=== PATIENT | female | born 1965 | race Caucasian/White ===

== ENCOUNTER 2021-05-21 06:16 | Inpatient (IN) | payer SELFPAY ==
[~2021-05-21] VITALS: Ht 160 cm; Wt 113.6 kg
[~2021-05-21 06:16] MED LIST: NOCURR
[2021-05-21] MEDS ORDERED: KETOROLAC TROMETHAMINE 30 MG/ML VIAL IVP ONE (06:45)
[2021-05-21] MEDS ORDERED: ONDANSETRON HCL 4 MG/2 ML VIAL IVP ONE ×2 (06:45→12:00)
[2021-05-21] MEDS ORDERED: SODIUM CHLORIDE 0.9% 1,000 ML IV ONE ×2 (06:45→09:15)
[2021-05-21] MEDS ORDERED: BISMUTH SUBSALICYLATE 525 MG/30 ML SUSPENSION UDCUP PO ONE (06:45)
[2021-05-21 06:53] LABS: EOSINOPHILS % (AUTO) 2.1 % (1.0-6.0); HEMOGLOBIN 14.6 g/dL (12.0-16.0); LYMPHOCYTES # (AUTO) 2.1 K/uL (1.0-4.8); LYMPHOCYTES % (AUTO) 11.9 % (22.0-44.0); MEAN CORPUSCULAR VOLUME 91 fL (80-100); MONOCYTES # (AUTO) 1.8 K/uL (0.1-1.0); MONOCYTES % (AUTO) 10.2 % (2.0-9.0); NEUTROPHILS % (AUTO) 74.8 % (40.0-70.0); PLATELET COUNT (AUTO) 291 K/uL (150-450); RED BLOOD CELL COUNT(AUTO) 4.72 MIL/uL (4.00-5.20); RED CELL DISTRIBUTION WIDTH 14.8 % (11.5-14.5)
[2021-05-21 07:06] LABS: ANION GAP 7 mmol/L (8-16); CALCIUM, TOTAL 8.5 mg/dL (8.8-10.5); CARBON DIOXIDE 27 mmol/L (22-29); CHLORIDE 104 mmol/L (98-107); CREATININE 0.72 mg/dL (0.60-1.30); GLOMERULAR FILTR. RATE CALC > 60 mL/min (>60); GLUCOSE,RANDOM 102 mg/dL (70-110); POTASSIUM 3.1 mmol/L (3.5-5.1); SODIUM SERUM 138 mmol/L (136-145); UREA NITROGEN, BLOOD 7 mg/dL (7-18)
[2021-05-21 07:13] LABS: ALANINE AMINOTRANSFERASE 26 U/L (12-78); ALBUMIN 3.4 g/dL (3.4-5.0); ALKALINE PHOSPHATASE 72 U/L (46-116); ASPARTATE AMINOTRANSFERASE 14 U/L (15-37); BILIRUBIN,TOTAL 0.6 mg/dL (0.1-1.0); LIPASE 312 U/L (73-393); TOTAL PROTEIN, SERUM 6.8 g/dL (6.4-8.2)
[2021-05-21] MEDS ORDERED: POTASSIUM CHLORIDE 20 MEQ ER TABLET PO ONE (07:30)
[2021-05-21 08:02] LABS: APPEARANCE,URINE HAZY (CLEAR); BILIRUBIN,URINE NEGATIVE (NEGATIVE); GLUCOSE, URINE (UA) NEGATIVE (NEGATIVE); LEUKOCYTE ESTERASE ,URINE TRACE (NEGATIVE); NITRATE,URINE NEGATIVE (NEGATIVE); OCCULT BLOOD,URINE TRACE (NEGATIVE); PROTEIN,URINE 30-70 mg/dL (NEGATIVE); SPECIFIC GRAVITIY, URINE 1.023 (1.003-1.030); UROBILINOGEN,URINE <=1.0 mg/dL (<=1.0)
[2021-05-21 08:24] LABS: BACTERIA,URINE None Seen /HPF (None Seen); RBC,URINE 0-2 /HPF (0-2); SQUAMOUS EPITHELIAL CELL,UR Few /LPF (None Seen); WBC,URINE 0-2 /HPF (0-5)
[2021-05-21] MEDS ORDERED: PIPERACILLIN/TAZO 3.375 GM/D5W 50 ML IV ONE (08:45)
[2021-05-21] MEDS ORDERED: MORPHINE SULFATE 4 MG/ML SYRINGE IVP ONE (08:45)
[2021-05-21] MEDS ORDERED: DiphenhydrAMINE HCL 50 MG/ML VIAL IVP ONE (08:45)
[2021-05-21 08:59] LABS: COVID AG,FIA SOURCE NASAL SWAB
[2021-05-21] MEDS ORDERED: 0.9% SODIUM CHLORIDE 10 ML SYRINGE IVP PRN (09:15)
[2021-05-21] MEDS ORDERED: ONDANSETRON HCL 4 MG/2 ML VIAL IVP PRN (09:15)
[2021-05-21 10:37] VITALS: BP 131/77
[2021-05-21] MEDS ORDERED: SUCCINYLCHOLINE CHLORIDE 20 MG/ML 10 ML VIAL IVP ONE (12:00)
[2021-05-21] MEDS ORDERED: MIDAZOLAM HCL 2 MG/2 ML VIAL IVP ONE (12:00)
[2021-05-21] MEDS ORDERED: LIDOCAINE/PF 2% 5 ML VIAL IM ONE (12:00)
[2021-05-21] MEDS ORDERED: PROPOFOL 1% 20 ML VIAL IVP ONE (12:00)
[2021-05-21] MEDS ORDERED: ROCURONIUM BROMIDE 10 MG/ML 5 ML VIAL IVP ONE (12:00)
[2021-05-21] MEDS ORDERED: DEXAMETHASONE SOD PHOS 4 MG/ML VIAL IVP ONE (12:00)
[2021-05-21] MEDS ORDERED: FentaNYL CITRATE PF 100 MCG/2 ML VIAL IVP ONE (12:00)
[2021-05-21] MEDS ORDERED: RINGERS SOLUTION,LACTATED 1,000 ML IV ONE ×2 (12:02→13:00)
[2021-05-21] MEDS ORDERED: BUPIVACAINE 0.25%/EPI 1:200,000/PF 10 ML VIAL ONE (14:51)
[2021-05-21] MEDS ORDERED: SODIUM CHLORIDE 0.9% 1,000 ML ONE (14:52)
[2021-05-21] MEDS ORDERED: MetroNIDAZOLE 500 MG/NACL 100 ML IV ONE (16:13)
[2021-05-21] MEDS ORDERED: SUGAMMADEX SODIUM 200 MG/2 ML VIAL IVP ONE ×2 (16:21→16:22)
[2021-05-21] MEDS ORDERED: FentaNYL CITRATE PF 100 MCG/2 ML VIAL IVP PRN (17:15)
[2021-05-21] MEDS ORDERED: HYDROmorphone 2 MG/ML VIAL ONE (17:29)
[2021-05-21] MEDS: HYDROmorphone 2 MG/ML VIAL IVP PRN ×4 (17:32→20:05)
[2021-05-21] MEDS ORDERED: ACETAMINOPHEN 1000 MG/ISO-OSM 100 ML IV ONE ×2 (17:35→17:45)
[2021-05-21] MEDS ORDERED: FentaNYL CITRATE PF 100 MCG/2 ML VIAL ONE ×2 (17:53→18:25)
[2021-05-21 18:27] VITALS: BP 163/89
[2021-05-21] MEDS: CefTRIAXone SODIUM 2 GM in DEXTROSE 5%-WATER 50 ML IV SCH (19:20)
[2021-05-21 19:38] VITALS: BP 156/86
[2021-05-21] MEDS: MetroNIDAZOLE 500 MG TABLET PO SCH (20:03)
[2021-05-21] MEDS: ACETAMINOPHEN 500 MG TABLET PO SCH (20:04)
[2021-05-21] MEDS: RINGERS SOLUTION,LACTATED 1,000 ML IV SCH (20:04)
[2021-05-21] MEDS: IBUPROFEN 600 MG TABLET PO SCH ×2 (20:04→23:38)
[2021-05-21] MEDS: OXYGEN THERAPY IH SCH (20:04)
[2021-05-21] MEDS: OxyCODONE HCL 5 MG IR TABLET PO PRN (23:39)
[2021-05-21] MEDS ORDERED: IPRATROPIUM BROMIDE 0.5 MG/2.5 ML NEB SOLUTION NEB PRN (23:45)
[2021-05-21] MEDS ORDERED: ALBUTEROL SULFATE 2.5 MG/0.5 ML NEB SOLUTION NEB PRN (23:45)
[2021-05-21] MEDS ORDERED: BISACODYL 10 MG RECTAL RECTAL SUPPOSITORY PR PRN (23:45)
[2021-05-21] MEDS ORDERED: MAGNESIUM HYDROXIDE SUSPENSION 30 ML UDCUP PO PRN (23:45)
[2021-05-22] MEDS: HEPARIN SODIUM,PORCINE 5,000 UNITS/ML VIAL SQ SCH ×4 (00:18→23:28)
[2021-05-22] MEDS: MORPHINE SULFATE 2 MG/ML SYRINGE IVP PRN ×6 (02:33→23:28)
[2021-05-22 04:58] VITALS: BP 134/75
[2021-05-22] MEDS: IBUPROFEN 600 MG TABLET PO SCH ×4 (06:04→23:28)
[2021-05-22] MEDS: POTASSIUM CHLORIDE 20 MEQ ER TABLET PO PRN (06:05)
[2021-05-22] MEDS: RINGERS SOLUTION,LACTATED 1,000 ML IV SCH ×2 (06:11→09:10)
[2021-05-22 07:34] LABS: BASOPHILS % (AUTO) 0.2 % (0.0-2.0); EOSINOPHILS % (AUTO) 0 % (1.0-6.0); HEMATOCRIT 41.5 % (36-46); HEMOGLOBIN 13.7 g/dL (12.0-16.0); LYMPHOCYTES # (AUTO) 1.2 K/uL (1.0-4.8); LYMPHOCYTES % (AUTO) 5.9 % (22.0-44.0); MEAN CORPUSCULAR HEMOGLOBIN 30.5 pg (26.0-34.0); MEAN CORPUSCULAR VOLUME 93 fL (80-100); MONOCYTES # (AUTO) 1.6 K/uL (0.1-1.0); MONOCYTES % (AUTO) 7.9 % (2.0-9.0); NEUTROPHILS # (AUTO) 17.8 K/uL (1.8-7.7); PLATELET COUNT (AUTO) 288 K/uL (150-450); RED BLOOD CELL COUNT(AUTO) 4.49 MIL/uL (4.00-5.20); RED CELL DISTRIBUTION WIDTH 14.9 % (11.5-14.5)
[2021-05-22] MEDS: DOCUSATE SODIUM 100 MG CAPSULE PO SCH ×2 (07:56→20:44)
[2021-05-22] MEDS: ACETAMINOPHEN 500 MG TABLET PO SCH ×3 (07:57→20:44)
[2021-05-22] MEDS: PANTOPRAZOLE SODIUM 40 MG/VIAL IVP SCH (07:57)
[2021-05-22] MEDS: OXYGEN THERAPY IH SCH ×2 (08:00→20:00)
[2021-05-22] MEDS: MetroNIDAZOLE 500 MG TABLET PO SCH ×2 (08:20→20:44)
[2021-05-22] MEDS: ONDANSETRON HCL 4 MG/2 ML VIAL IVP PRN ×3 (08:20→23:40)
[2021-05-22] MEDS ORDERED: ALBU8HFA IH (10:39)
[2021-05-22] MEDS: ALBUTEROL SULFATE HFA 90 MCG/PUFF 8 GM INHALER IH PRN (15:27)
[2021-05-22] MEDS: CefTRIAXone SODIUM 2 GM in DEXTROSE 5%-WATER 50 ML IV SCH (16:09)
[2021-05-22 16:28] VITALS: BP 140/81
[2021-05-22 19:51] VITALS: BP 135/86
[2021-05-23] MEDS: OxyCODONE HCL 5 MG IR TABLET PO PRN ×2 (02:38→08:48)
[2021-05-23] MEDS: RINGERS SOLUTION,LACTATED 1,000 ML IV SCH ×2 (05:08→20:17)
[2021-05-23] MEDS: MORPHINE SULFATE 2 MG/ML SYRINGE IVP PRN ×3 (05:08→13:57)
[2021-05-23] MEDS: ALBUTEROL SULFATE HFA 90 MCG/PUFF 8 GM INHALER IH PRN (05:28)
[2021-05-23 05:55] VITALS: BP 135/74
[2021-05-23] MEDS: IBUPROFEN 600 MG TABLET PO SCH ×3 (06:00→18:12)
[2021-05-23 07:38] VITALS: BP 132/85
[2021-05-23] MEDS: OXYGEN THERAPY IH SCH ×2 (08:00→20:00)
[2021-05-23] MEDS: DOCUSATE SODIUM 100 MG CAPSULE PO SCH ×2 (08:49→20:16)
[2021-05-23] MEDS: HEPARIN SODIUM,PORCINE 5,000 UNITS/ML VIAL SQ SCH ×2 (08:50→17:03)
[2021-05-23] MEDS: PANTOPRAZOLE SODIUM 40 MG/VIAL IVP SCH (08:50)
[2021-05-23] MEDS: ACETAMINOPHEN 500 MG TABLET PO SCH ×3 (08:50→20:17)
[2021-05-23 09:19] LABS: BASOPHILS % (AUTO) 0.5 % (0.0-2.0); EOSINOPHILS % (AUTO) 1.1 % (1.0-6.0); HEMATOCRIT 40.5 % (36-46); HEMOGLOBIN 13.4 g/dL (12.0-16.0); LYMPHOCYTES # (AUTO) 1.3 K/uL (1.0-4.8); LYMPHOCYTES % (AUTO) 6.9 % (22.0-44.0); MEAN CORPUSCULAR HEMOGLOBIN 30.7 pg (26.0-34.0); MEAN CORPUSCULAR HGB CONC 33.1 G/dL (31.0-37.0); MEAN CORPUSCULAR VOLUME 93 fL (80-100); MONOCYTES # (AUTO) 1.8 K/uL (0.1-1.0); MONOCYTES % (AUTO) 9.4 % (2.0-9.0); NEUTROPHILS # (AUTO) 15.7 K/uL (1.8-7.7); NEUTROPHILS % (AUTO) 82.1 % (40.0-70.0); PLATELET COUNT (AUTO) 275 K/uL (150-450); RED BLOOD CELL COUNT(AUTO) 4.36 MIL/uL (4.00-5.20); RED CELL DISTRIBUTION WIDTH 14.9 % (11.5-14.5)
[2021-05-23 09:27] LABS: ANION GAP 12 mmol/L (8-16); CALCIUM, TOTAL 8.5 mg/dL (8.8-10.5); CARBON DIOXIDE 26 mmol/L (22-29); CHLORIDE 105 mmol/L (98-107); CREATININE 0.51 mg/dL (0.60-1.30); GLUCOSE,RANDOM 87 mg/dL (70-110); POTASSIUM 3.5 mmol/L (3.5-5.1); SODIUM SERUM 143 mmol/L (136-145); UREA NITROGEN, BLOOD 7 mg/dL (7-18)
[2021-05-23 09:29] LABS: GLOMERULAR FILTR. RATE CALC > 60 mL/min (>60)
[2021-05-23] MEDS: MetroNIDAZOLE 500 MG TABLET PO SCH ×2 (10:17→20:17)
[2021-05-23] MEDS: ONDANSETRON HCL 4 MG/2 ML VIAL IVP PRN (13:57)
[2021-05-23 15:39] VITALS: BP 137/72
[2021-05-23] MEDS ORDERED: SODIUM CHLORIDE 0.9% 250 ML IV ONE (18:09)
[2021-05-23] MEDS: CefTRIAXone SODIUM 2 GM in DEXTROSE 5%-WATER 50 ML IV SCH (18:11)
[2021-05-23 19:40] VITALS: BP 136/68
[2021-05-23] MEDS: ZOLPIDEM TARTRATE 5 MG TABLET PO PRN (20:17)
[2021-05-24] MEDS: MORPHINE SULFATE 2 MG/ML SYRINGE IVP PRN ×4 (01:27→18:04)
[2021-05-24] MEDS: OxyCODONE HCL 5 MG IR TABLET PO PRN (04:13)
[2021-05-24 04:20] VITALS: BP 121/68
[2021-05-24] MEDS: IBUPROFEN 600 MG TABLET PO SCH ×5 (05:29→23:23)
[2021-05-24 07:38] LABS: EOSINOPHILS % (AUTO) 3.9 % (1.0-6.0); HEMATOCRIT 38.7 % (36-46); HEMOGLOBIN 13.2 g/dL (12.0-16.0); LYMPHOCYTES # (AUTO) 1.5 K/uL (1.0-4.8); LYMPHOCYTES % (AUTO) 9.7 % (22.0-44.0); MEAN CORPUSCULAR HEMOGLOBIN 31.1 pg (26.0-34.0); MEAN CORPUSCULAR HGB CONC 34.1 G/dL (31.0-37.0); MEAN CORPUSCULAR VOLUME 91 fL (80-100); MONOCYTES # (AUTO) 1.7 K/uL (0.1-1.0); MONOCYTES % (AUTO) 10.6 % (2.0-9.0); NEUTROPHILS # (AUTO) 11.8 K/uL (1.8-7.7); NEUTROPHILS % (AUTO) 74.8 % (40.0-70.0); PLATELET COUNT (AUTO) 289 K/uL (150-450); RED BLOOD CELL COUNT(AUTO) 4.24 MIL/uL (4.00-5.20); RED CELL DISTRIBUTION WIDTH 14.6 % (11.5-14.5)
[2021-05-24] MEDS: OXYGEN THERAPY IH SCH ×2 (08:00→20:00)
[2021-05-24 08:07] VITALS: BP 134/64
[2021-05-24] MEDS: PANTOPRAZOLE SODIUM 40 MG/VIAL IVP SCH (08:41)
[2021-05-24] MEDS: HEPARIN SODIUM,PORCINE 5,000 UNITS/ML VIAL SQ SCH ×4 (08:41→23:23)
[2021-05-24] MEDS: DOCUSATE SODIUM 100 MG CAPSULE PO SCH ×2 (08:41→20:48)
[2021-05-24] MEDS: ACETAMINOPHEN 500 MG TABLET PO SCH ×3 (08:44→20:48)
[2021-05-24] MEDS: MetroNIDAZOLE 500 MG TABLET PO SCH ×2 (08:44→20:48)
[2021-05-24] MEDS: RINGERS SOLUTION,LACTATED 1,000 ML IV SCH (10:24)
[2021-05-24 15:58] VITALS: BP 137/78
[2021-05-24] MEDS: CefTRIAXone SODIUM 2 GM in DEXTROSE 5%-WATER 50 ML IV SCH (18:25)
[2021-05-24] MEDS ORDERED: SODIUM CHLORIDE 0.9% 500 ML IV ONE (18:28)
[2021-05-24] MEDS: ALBUTEROL SULFATE HFA 90 MCG/PUFF 8 GM INHALER IH PRN (18:31)
[2021-05-24 19:50] VITALS: BP 121/63
[2021-05-24] MEDS: ZOLPIDEM TARTRATE 5 MG TABLET PO PRN (20:48)
[2021-05-25] MEDS: RINGERS SOLUTION,LACTATED 1,000 ML IV SCH ×2 (02:50→14:41)
[2021-05-25] MEDS: OxyCODONE HCL 5 MG IR TABLET PO PRN (04:36)
[2021-05-25 05:30] VITALS: BP 155/81
[2021-05-25] MEDS: ALBUTEROL SULFATE HFA 90 MCG/PUFF 8 GM INHALER IH PRN (05:46)
[2021-05-25] MEDS: IBUPROFEN 600 MG TABLET PO SCH ×4 (05:47→23:25)
[2021-05-25 06:44] LABS: BASOPHILS % (AUTO) 1.8 % (0.0-2.0); EOSINOPHILS % (AUTO) 5.2 % (1.0-6.0); HEMATOCRIT 37.8 % (36-46); HEMOGLOBIN 12.8 g/dL (12.0-16.0); LYMPHOCYTES # (AUTO) 1.7 K/uL (1.0-4.8); LYMPHOCYTES % (AUTO) 12.7 % (22.0-44.0); MEAN CORPUSCULAR HGB CONC 33.8 G/dL (31.0-37.0); MEAN CORPUSCULAR VOLUME 92 fL (80-100); MONOCYTES # (AUTO) 1.2 K/uL (0.1-1.0); NEUTROPHILS # (AUTO) 9.5 K/uL (1.8-7.7); NEUTROPHILS % (AUTO) 71.3 % (40.0-70.0); PLATELET COUNT (AUTO) 313 K/uL (150-450); RED BLOOD CELL COUNT(AUTO) 4.13 MIL/uL (4.00-5.20); RED CELL DISTRIBUTION WIDTH 14.5 % (11.5-14.5)
[2021-05-25 08:15] VITALS: BP 130/73
[2021-05-25] MEDS: MetroNIDAZOLE 500 MG TABLET PO SCH ×2 (08:59→20:13)
[2021-05-25] MEDS: ACETAMINOPHEN 325 MG TABLET PO PRN (08:59)
[2021-05-25] MEDS: PANTOPRAZOLE SODIUM 40 MG/VIAL IVP SCH (08:59)
[2021-05-25] MEDS: HEPARIN SODIUM,PORCINE 5,000 UNITS/ML VIAL SQ SCH ×3 (08:59→23:25)
[2021-05-25] MEDS: DOCUSATE SODIUM 100 MG CAPSULE PO SCH ×2 (08:59→20:13)
[2021-05-25] MEDS: MORPHINE SULFATE 2 MG/ML SYRINGE IVP PRN ×4 (09:00→20:13)
[2021-05-25] MEDS: ACETAMINOPHEN 500 MG TABLET PO SCH ×3 (09:10→23:21)
[2021-05-25 16:19] VITALS: BP 142/84
[2021-05-25] MEDS: CefTRIAXone SODIUM 2 GM in DEXTROSE 5%-WATER 50 ML IV SCH (18:37)
[2021-05-25 21:07] VITALS: BP 139/81
[2021-05-25] MEDS: ZOLPIDEM TARTRATE 5 MG TABLET PO PRN (23:24)
[2021-05-26] MEDS: RINGERS SOLUTION,LACTATED 1,000 ML IV SCH (04:10)
[2021-05-26 04:41] VITALS: BP 143/90
[2021-05-26] MEDS: IBUPROFEN 600 MG TABLET PO SCH ×4 (05:13→23:05)
[2021-05-26 05:57] LABS: BASOPHILS % (AUTO) 0.7 % (0.0-2.0); EOSINOPHILS % (AUTO) 7.3 % (1.0-6.0); HEMATOCRIT 39.1 % (36-46); HEMOGLOBIN 12.9 g/dL (12.0-16.0); LYMPHOCYTES # (AUTO) 2.2 K/uL (1.0-4.8); LYMPHOCYTES % (AUTO) 18.8 % (22.0-44.0); MEAN CORPUSCULAR HEMOGLOBIN 30.1 pg (26.0-34.0); MEAN CORPUSCULAR VOLUME 91 fL (80-100); MONOCYTES # (AUTO) 1.3 K/uL (0.1-1.0); MONOCYTES % (AUTO) 10.5 % (2.0-9.0); NEUTROPHILS # (AUTO) 7.5 K/uL (1.8-7.7); NEUTROPHILS % (AUTO) 62.7 % (40.0-70.0); PLATELET COUNT (AUTO) 335 K/uL (150-450); RED BLOOD CELL COUNT(AUTO) 4.29 MIL/uL (4.00-5.20); RED CELL DISTRIBUTION WIDTH 14.5 % (11.5-14.5)
[2021-05-26] MEDS: MORPHINE SULFATE 2 MG/ML SYRINGE IVP PRN ×3 (06:01→15:14)
[2021-05-26] MEDS: OxyCODONE HCL 5 MG IR TABLET PO PRN ×2 (07:21→21:18)
[2021-05-26 07:41] VITALS: BP 136/88
[2021-05-26] MEDS: OXYGEN THERAPY IH SCH ×2 (08:00→20:00)
[2021-05-26] MEDS: HEPARIN SODIUM,PORCINE 5,000 UNITS/ML VIAL SQ SCH ×3 (08:00→23:05)
[2021-05-26] MEDS: MetroNIDAZOLE 500 MG TABLET PO SCH (08:30)
[2021-05-26] MEDS: DOCUSATE SODIUM 100 MG CAPSULE PO SCH ×2 (08:44→20:04)
[2021-05-26] MEDS: PANTOPRAZOLE SODIUM 40 MG/VIAL IVP SCH (10:13)
[2021-05-26] MEDS: ACETAMINOPHEN 500 MG TABLET PO SCH ×3 (10:53→20:03)
[2021-05-26 15:41] VITALS: BP 142/76
[2021-05-26 20:00] VITALS: BP 145/77
[2021-05-26] MEDS: AMOX TR/POT CLAV 875 MG/125 MG TABLET PO SCH (20:03)
[2021-05-26] MEDS: ZOLPIDEM TARTRATE 5 MG TABLET PO PRN (21:18)
[2021-05-27 04:44] VITALS: BP 144/83
[2021-05-27] MEDS: IBUPROFEN 600 MG TABLET PO SCH ×4 (05:04→23:18)
[2021-05-27 07:06] LABS: BASOPHILS % (AUTO) 0.9 % (0.0-2.0); EOSINOPHILS % (AUTO) 6.4 % (1.0-6.0); HEMATOCRIT 38.3 % (36-46); HEMOGLOBIN 12.8 g/dL (12.0-16.0); LYMPHOCYTES # (AUTO) 1.8 K/uL (1.0-4.8); LYMPHOCYTES % (AUTO) 16.6 % (22.0-44.0); MEAN CORPUSCULAR HEMOGLOBIN 30.6 pg (26.0-34.0); MEAN CORPUSCULAR HGB CONC 33.4 G/dL (31.0-37.0); MEAN CORPUSCULAR VOLUME 91 fL (80-100); MONOCYTES # (AUTO) 1.1 K/uL (0.1-1.0); MONOCYTES % (AUTO) 10.4 % (2.0-9.0); NEUTROPHILS # (AUTO) 7.3 K/uL (1.8-7.7); NEUTROPHILS % (AUTO) 65.7 % (40.0-70.0); PLATELET COUNT (AUTO) 320 K/uL (150-450); RED BLOOD CELL COUNT(AUTO) 4.19 MIL/uL (4.00-5.20); RED CELL DISTRIBUTION WIDTH 14.5 % (11.5-14.5)
[2021-05-27] MEDS: OXYGEN THERAPY IH SCH ×2 (08:00→20:00)
[2021-05-27] MEDS: HEPARIN SODIUM,PORCINE 5,000 UNITS/ML VIAL SQ SCH ×3 (08:00→23:18)
[2021-05-27] MEDS: ACETAMINOPHEN 500 MG TABLET PO SCH ×3 (08:46→20:06)
[2021-05-27] MEDS: AMOX TR/POT CLAV 875 MG/125 MG TABLET PO SCH ×2 (08:46→20:06)
[2021-05-27] MEDS: DOCUSATE SODIUM 100 MG CAPSULE PO SCH ×2 (08:49→20:07)
[2021-05-27] MEDS: PANTOPRAZOLE SODIUM 40 MG/VIAL IVP SCH (08:49)
[2021-05-27 09:00] VITALS: BP 136/90
[2021-05-27] MEDS: OxyCODONE HCL 5 MG IR TABLET PO PRN (11:36)
[2021-05-27 15:30] VITALS: BP 142/86
[2021-05-27 19:52] VITALS: BP 138/78
[2021-05-27] MEDS: ZOLPIDEM TARTRATE 5 MG TABLET PO PRN (20:06)
[2021-05-28] MEDS: OxyCODONE HCL 5 MG IR TABLET PO PRN ×3 (01:05→12:53)
[2021-05-28 05:02] VITALS: BP 136/85
[2021-05-28] MEDS: IBUPROFEN 600 MG TABLET PO SCH ×2 (06:23→12:53)
[2021-05-28 07:06] LABS: BASOPHILS % (AUTO) 0.6 % (0.0-2.0); EOSINOPHILS % (AUTO) 6.4 % (1.0-6.0); HEMATOCRIT 37.6 % (36-46); HEMOGLOBIN 12.9 g/dL (12.0-16.0); LYMPHOCYTES % (AUTO) 16.5 % (22.0-44.0); MEAN CORPUSCULAR HGB CONC 34.4 G/dL (31.0-37.0); MEAN CORPUSCULAR VOLUME 90 fL (80-100); MONOCYTES # (AUTO) 1.6 K/uL (0.1-1.0); MONOCYTES % (AUTO) 13.3 % (2.0-9.0); NEUTROPHILS # (AUTO) 7.7 K/uL (1.8-7.7); NEUTROPHILS % (AUTO) 63.2 % (40.0-70.0); PLATELET COUNT (AUTO) 351 K/uL (150-450); RED BLOOD CELL COUNT(AUTO) 4.17 MIL/uL (4.00-5.20); RED CELL DISTRIBUTION WIDTH 14.9 % (11.5-14.5)
[2021-05-28 07:24] LABS: ALANINE AMINOTRANSFERASE 56 U/L (12-78); ALBUMIN 2.5 g/dL (3.4-5.0); ALKALINE PHOSPHATASE 56 U/L (46-116); ANION GAP 5 mmol/L (8-16); ASPARTATE AMINOTRANSFERASE 45 U/L (15-37); BILIRUBIN,TOTAL 0.4 mg/dL (0.1-1.0); CALCIUM, TOTAL 8.2 mg/dL (8.8-10.5); CARBON DIOXIDE 30 mmol/L (22-29); CHLORIDE 107 mmol/L (98-107); CREATININE 0.52 mg/dL (0.60-1.30); GLUCOSE,RANDOM 95 mg/dL (70-110); SODIUM SERUM 142 mmol/L (136-145); TOTAL PROTEIN, SERUM 5.7 g/dL (6.4-8.2); UREA NITROGEN, BLOOD 8 mg/dL (7-18)
[2021-05-28 07:26] LABS: GLOMERULAR FILTR. RATE CALC > 60 mL/min (>60); POTASSIUM 2.9 mmol/L (3.5-5.1)
[2021-05-28] MEDS ORDERED: POTASSIUM CHL 10 MEQ/WATER 50 ML IV PRN (07:45)
[2021-05-28] MEDS: POTASSIUM CHLORIDE 20 MEQ ER TABLET PO PRN (07:56)
[2021-05-28] MEDS: DOCUSATE SODIUM 100 MG CAPSULE PO SCH (08:00)
[2021-05-28] MEDS: OXYGEN THERAPY IH SCH (08:00)
[2021-05-28] MEDS: HEPARIN SODIUM,PORCINE 5,000 UNITS/ML VIAL SQ SCH (08:00)
[2021-05-28 08:01] VITALS: BP 134/82
[2021-05-28] MEDS ORDERED: AMOX-426 PO (08:41)
[2021-05-28] MEDS: PANTOPRAZOLE SODIUM 40 MG/VIAL IVP SCH ×2 (08:55→09:00)
[2021-05-28] MEDS: AMOX TR/POT CLAV 875 MG/125 MG TABLET PO SCH (08:55)
[2021-05-28] MEDS: ACETAMINOPHEN 325 MG TABLET PO PRN ×2 (08:55→08:56)
[2021-05-28] MEDS: ACETAMINOPHEN 500 MG TABLET PO SCH (08:57)
== END 2021-05-28 15:41 | disposition home or self-care (01) | DRG 339 ==
LOC: EMS 06:16 → 6S 09:36
PROVIDERS: ADMIT Hospitalist; ATTEND Hospitalist
PROC: 0DTJ4ZZ Resection of Appendix, Percutaneous Endoscopic Approach (ICD-10-PCS; principal; 2021-05-21 14:00)
DX: K35.33 Acute appendicitis with perforation, localized peritonitis, and gangrene, with abscess (principal); Z68.41 Body mass index [BMI] 40.0-44.9, adult; E44.0 Moderate protein-calorie malnutrition; R65.10 Systemic inflammatory response syndrome (SIRS) of non-infectious origin without acute organ dysfunction; Z98.891 History of uterine scar from previous surgery; E66.01 Morbid (severe) obesity due to excess calories; Z20.822 Contact with and (suspected) exposure to COVID-19; F12.90 Cannabis use, unspecified, uncomplicated; J45.909 Unspecified asthma, uncomplicated; K38.1 Appendicular concretions; E87.6 Hypokalemia; Z88.5 Allergy status to narcotic agent
CPT/HCPCS: 74176; 80048; 80053; 81001; 83690; 84132; 85025; 87081; 88304; 94640; 97110; 97116; 97162; 97530; 99291; C9113; J0131; J0330; J0690; J0696; J1100; J1170; J1200; J1644; J1885; J2250; J2270; J2405; J2543; J2704; J3010; J3490; J3535; J7030; J7040; J7050; J7060; J7120; Q9967